=== PATIENT | female | born 1960 | race African-American/Black ===

== ENCOUNTER 2024-08-29 11:25 | Emergency (ER) | payer OTHER ==
[~2024-08-29] VITALS: Ht 157.5 cm; Wt 84.7 kg
--- NOTE | 2024-08-29 11:42 | ED.PDOC ---
HPI Comments HPI: Poor Historian. Exertional dyspnea for the last three days. Patient went to [facility] was found with a slightly elevated troponin and elevated BNP. No history of CHF. Past Medical History: Past Surgical History: 64y F who presents to the ED for chief complaint of shortness of breath - pt states she has been having shortness of breath for the past 3-4 days with light exertion - pt states she started to have palpitations yesterday with exacerbation of her symptoms today and came to [place] [facility] for further evaluation - pt states she labs and EKG done which was abnormal with associated labs showing congestive heart failure - pt states she was referred to local ED for further evaluation - pt states she has noticed bilateral lower extremity edema over the past few days - pt otherwise denies any other symptoms at this time past medical history: mitral valve prolapse, asthma, past surgical history: tonsillectomy, L breast lumpectomy, L knee surgery, allergies: amoxicillin, iodine, naproxen, metronidazole, penicillins, sulfa antibiotics medications: diltiazem, albuterol, meloxicam, social history: denies tobacco use, denies ETOH use, denies drug use REVIEW OF SYSTEMS: CONSTITUTIONAL: Denies acute: fever, diaphoresis, chills, generalized weakness. HEAD: Denies acute: headache, photophobia Eyes: Denies acute: Double vision, vision loss, eye pain, eye discharge. EARS: Denies acute: tinnitus, hearing loss, ear discharge, ear pain, THROAT: Denies acute: sore throat, swelling, difficulty swallowing , pain with swallowing, change in voice. NECK: Denies acute: neck pain, neck swelling, stiff neck. HEART: Denies acute : palpitations, LUNGS: Denies acute: wheezing, cough, hemoptysis ABDOMEN: Denies acute: abdominal pain, Nausea, Vomiting, diarrhea, melena , hematemesis, hematochezia SKIN: Denies acute: rash, redness, lesions, itchiness. EXTREMITIES: Denies acute: calf pain, numbness, tingling, weakness, denies pain in extremity. Denies acute: Low back pain. Neuro: Denies acute: focal neurological deficit, motor or sensory focal neurological deficit, tremors, seizure like activity, confusion, dizziness, change in mental status, loss of bowel or bladder function, cauda equina like symptoms. : Denies acute: dysuria, hematuria, flank pain, increase in urinary frequency. PSYCH: Denies acute: hallucination, suicidal ideation, homicidal ideation. FEMALE: Denies acute: abnormal vaginal bleeding, foul odor, unusual discharge. PHYSICAL EXAM: General: ----mild----acute distress, awake and alert. Head: normocephalic, atraumatic. Neck: supple, trachea is midline, no swelling. Throat: Normal phonation. Eyes:, no erythema, no purulent discharge, no proptosis, no icterus. Heart: regular rate, regular rhythm, no significant murmur appreciated. Lungs: no apparent respiratory distress, Able to speak in full sentences. No wheezing, no rhonchi, no crackles. No stridors Clear to auscultation bilaterally. Abdomen: non tender to palpation, non distended, soft, no guarding, no rebound, + bowel sounds. Neuro: Awake, Alert, oriented to name, self, situation, follows commands GCS=15. Speech is normal. Skin: no petechia, no purpura, no cyanosis, non-pale, not jaundice. Lower extremities: --no - Pitting edema no deformity, no focal swelling, no calf TTP. Makes eye contact. moves all four extremities. Face: no apparent facial droop. Ambulating in the ED independently. ED COURSE: DISCLAIMER: This medical document was created using an electronic medical record system with voice recognition software and computerized dictation system. Although this document has been carefully reviewed, there might still be some phonetic and typographical errors. Occasional wrong-word or "sound-alike" substitutions may have occurred due to the inherent limitations of voice recognition software. These areas are purely typographical due to imperfections of the software prog socorro and do not reflect any compromise in the patient's medical care. Please read the chart carefully and recognize, using context, where these substitutions have occurred. Time Seen by MD: 11:29 Primary Care Provider: Mayo Reviewed Notes: Nurses Notes Allergies: Coded Allergies: Amoxicillin (Unverified Allergy, Unknown, 12/02/14) Iodine (Unverified Allergy, Unknown, 12/02/14) Metronidazole (Unverified Allergy, Unknown, 12/02/14) Naproxen (Unverified Allergy, Unknown, 12/02/14) Peanut-containing Drug Products (Unverified Allergy, Unknown, 12/02/14) Penicillins (Unverified Allergy, Unknown, 12/02/14) Sulfa Antibiotics (Unverified Allergy, Unknown, 12/02/14) Uncoded Allergies: pecans (Allergy, Unknown, 08/29/24) walnuts (Allergy, Unknown, 12/02/14) Information Source: Patient Mode of Arrival: Ambulatory Brought in by: self Past Medical History PAST MEDICAL HISTORY: Denies Surgical History: Denies all surgeries 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 Was a procedure done?: No CP Differential Dx Differential Diagnosis: N/A Differential Diagnosis: Other (DDx include ACS, unstable angina, anxiety, PE, pneumothroax, neoplasm, cardiac ischemia, COPD, asthma, CHF, pleural effusion, tobacco abuse, pneumonia, hypoxia, hypercapnia, anemia., infection/sepsis., pulmonary edema. Asthma, Cardiac tamponade, infection.) X-Ray, Labs, Meds, VS Vital Signs Date Time Temp Pulse Resp B/P (MAP) Pulse Ox O2 Delivery O2 Flow Rate FiO2 08/29/24 20:00 98.1 71 20 108/52 (70) 98 98.1 08/29/24 18:00 94 18 106/62 (77) 94 08/29/24 16:00 64 08/29/24 15:18 72 20 101/46 (64) 96 08/29/24 14:06 124/61 08/29/24 12:04 73 08/29/24 12:04 73 17 96 Room Air* 0 21 08/29/24 12:04 98.2 73 17 120/65 (83) 96 98.2 08/29/24 12:04 95 Room Air* 0 21 08/29/24 12:04 18 95 Room Air* 0 08/29/24 11:49 63 08/29/24 11:34 Room Air* 0 21 08/29/24 11:34 98.2 107 22 134/84 (101) 97 98.2 Lab Test 6/28/25 15:14 08/29/24 13:15 08/29/24 13:14 08/29/24 12:26 Range/Units Troponin I High Sensitivity 38 *H 33 37 *H </=34 ng/L Urine Color Yellow Yellow Urine Clarity Cloudy H Clear Urine pH 5.5 5.0-9.0 Urine Specific [place] 1.017 1.001-1.035 Urine Protein Negative Negative Urine Ketones Trace Negative Urine Blood Negative Negative /uL Urine Nitrite Negative Negative Urine Bilirubin Negative Negative Urine Urobilinogen Normal Negative mg/dL Urine Leukocyte Esterase 3+ Negative /uL Urine RBC 9 0 - 4 /hpf Urine Microscopic WBC 114 H 0-5 /HPF Urine Squamous Epithelial Cells Few <5 /hpf Urine Bacteria Few H None Seen /hpf Urine Glucose Normal Normal mg/dL White Blood Count 6.6 4.4-10.8 10^3/uL Red Blood Count 4.15 4.0-5.20 10^6/uL Hemoglobin 13.3 12.2-16.2 g/dL Hematocrit 38.9 36.0-46.0 % Mean Corpuscular Volume 93.8 80.0-100.0 fL Mean Corpuscular Hemoglobin 32.1 H 28.0-32.0 pg Mean Corpuscular Hemoglobin Concent 34.2 32.0-36.0 g/dL Red Cell Distribution Width 13.7 11.8-14.3 % Platelet Count 198 140-450 10^3/uL Mean Platelet Volume 8.2 6.9-10.8 fL Neutrophils (%) (Auto) 66.0 37.0-80.0 % Lymphocytes (%) (Auto) 24.3 10.0-50.0 % Monocytes (%) (Auto) 6.9 0.0-12.0 % Eosinophils (%) (Auto) 2.3 0.0-7.0 % Basophils (%) (Auto) 0.5 0.0-2.0 % Neutrophils # (Auto) 4.4 1.6-8.6 10 ^3/uL Lymphocytes # (Auto) 1.6 0.4-5.4 10 ^3/uL Monocytes # (Auto) 0.5 0-1.3 10 ^3/uL Eosinophils # (Auto) 0.2 0-0.8 10 ^3/uL Basophils # (Auto) 0 0-0.2 10 ^3/uL Nucleated Red Blood Cells 0.0 % Prothrombin Time 11.2 9.3-11.8 sec Prothrombin Time INR 1.06 0.9-1.15 Activated Partial Thromboplast Time 29.4 24.5-34.5 SEC D-Dimer, Quantitative 2.24 H 0.0-0.49 mg/L FEU Sodium Level 147 H 136-145 mmol/L Potassium Level 3.6 3.5-5.1 mmol/L Chloride Level 111 H 98-107 mmol/L Carbon Dioxide Level 24 20-31 mmol/L Anion Gap 12 5-15 Blood Urea Nitrogen 11 9-23 mg/dL Creatinine 0.89 0.550-1.02 mg/dL Glomerular Filtration Rate Calc 73 >90 mL/min BUN/Creatinine Ratio 12.4 10.0-20.0 Serum Glucose 98 74-106 mg/dL Lactic Acid Level 1.3 0.4-2.0 mmol/L Calcium Level 9.3 8.7-10.4 mg/dL Total Bilirubin 0.9 0.2-1.0 mg/dL Aspartate Amino Transferase (AST) 28 <34 U/L Alanine Aminotransferase (ALT) 27 7-40 U/L Alkaline Phosphatase 95 46-116 U/L B-Type Natriuretic Peptide 492.10 0-100 pg/mL Total Protein 6.7 5.7-8.2 g/dL Albumin 4.2 3.2-4.8 g/dL [place] [id number] Ph: [phone] DIAGNOSTIC IMAGING Diagnostic Imaging Report : [id number] Signed PATIENT: ALBA GRAMAJO ACCT: [id number] UNIT: [id number] : 1960 LOC: ER ROOM / BED: / AGE / SEX: 64 / F ADM STATUS: REG ER SERVICE 1304 ORDERING PHYSICIAN: BOB ROCK DO PROCEDURE(s): BLDVT - BiLat Lower DVT REASON: sob ORDER NUMBER(s): [id number], ACCESSION NUMBER(s): [id number] US BiLat Lower DVT HISTORY: sob COMPARISON: None TECHNIQUE: Duplex Doppler evaluation of the deep venous system of the lower extremities from the common femoral veins, superficial femoral vein, deep femoral vein, popliteal vein, and calf veins, including color Doppler and spectral/pulsed waveform analysis, was performed. FINDINGS: Right: - Common femoral vein: Compressible - Deep femoral vein: Compressible - Femoral vein: Compressible - Popliteal vein: Compressible - Trifurcation and Posterior tibial vein: Waveforms present - Other: Popliteal fossa cyst measuring 1.8 x 0.8 x 4.7 cm. Left: - Common femoral vein: Compressible - Deep femoral vein: Compressible - Femoral vein: Compressible - Popliteal vein: Compressible - Trifurcation and Posterior tibial vein: Waveforms present - Other: Popliteal fossa cyst measuring 2.5 x 0.9 x 3.9 cm IMPRESSION: No right or left lower extremity deep venous thrombosis. Bilateral popliteal fossa cysts measuring 4.7 cm on the right and 3.9 cm on the left. ATED BY: RANDY AVITIA MD DICTATED DATE/TIME: 08/29/24 142 SIGNED BY: RANDY AVITIA MD SIGNED DATE/TIME: 08/29/24 142 CC: [place] [id number] Ph: [phone] DIAGNOSTIC IMAGING Diagnostic Imaging Report : [id number] Signed PATIENT: ALBA GRAMAJO ACCT: [id number] UNIT: [id number] : 1960 LOC: ER ROOM / BED: / AGE / SEX: 64 / F ADM STATUS: REG ER SERVICE 1134 ORDERING PHYSICIAN: BOB ROCK DO PROCEDURE(s): CXRP - CHEST PORTABLE REASON: chf ORDER NUMBER(s): [id number], ACCESSION NUMBER(s): [id number] CHEST RADIOGRAPH Indication: chf Technique: Single frontal view of the chest was obtained Comparison: None FINDINGS: Lines and Tubes: None Lungs and Pleura: Pulmonary vascular congestion/ edema. No focal consolidation. No effusion. No pneumothorax. Cardiomediastinal contours: Enlarged Bones: No acute osseous abnormality. IMPRESSION: Cardiomegaly with pulmonary vascular congestion /edema. ATED BY: RANDY AVITIA MD DICTATED DATE/TIME: 08/29/24 1248 SIGNED BY: RANDY AVITIA MD SIGNED DATE/TIME: 08/29/24 1248 CC: Time of 1ST Reevaluation: 14:54 (I discussed in length Lovenox anticoagulation with the patient. Patient denies any recent surgeries or brain aneurysms or coagulopathy or bleeding from anywhere. She has normal stool color. Patient is allergic to iodine. We do not have any V/Q scans available in our facility on weekends. Patient is agreeable with taking Lovenox for possible PE.The case was discussed with the [facility] admitting team (HPI, physical exam, labs and diagnostic tests that were available at the time of disposition, ED course, treatment plan) on the phone. They agreed to transfer the patient to their service by [facility] for further evaluation and treatment. Dr. jurado Authorization number is--[id number]) Reevaluation 1ST: Improved Patient Education/Counseling: Diagnosis, Treatment Family Education/Counseling: No Family Present Comments Patient presented with the above HPI.---dyspnea---workup was initiated. patient was found with the above mentioned diagnosis. the following medications were ordered: please refer to order lists of meds and tests obtained by myself Dr. Rock. Patient ED course and VS have been stabilized. Patient has been reassessed in the ED and remained in a stable condition. Pertinent incidental findings were discussed with the patient and/or family. Patient/family voices understanding and is agreeable with plan. Patient has been observed in the ED adequate length of time to insure improvement/stability. Escalation of care considered: Consideration of escalation to observation or admission Patient was transferred to [facility] per insurance requirement to the medicine team for further evaluation and treatment of their presentation. All the reports of any imaging studies that were ordered by myself were reviewed by myself. Departure 1 Departure Time of Disposition: 16:08 Impression: Primary Impression: Dyspnea Additional Impressions: Elevated troponin CHF (congestive heart failure) Ventricular bigeminy Left bundle branch block Disposition: 02 SHORT TERM HOSPITAL Admit to: Tele Condition: Guarded Discharged With: Self Critical Care Note Critical Care Time?: Yes (90 min-critical care time only) Heart Score Heart Score: Heart Score Response (Comments) Value History Moderate Suspicious [address]-Deviation 2 Age 45-64 1 Risk Factors No known risk factors 0 Troponin 1-2 x's Normal limit 1 Total 5 I personally scribed for BOB ROCK DO ([facility]) on 08/29/24 at 11:42. Electronically submitted by Stefany Sheppard ([facility]). I personally scribed for BOB ROCK DO ([facility]) on 08/29/24 at 12:35. Electronically submitted by Stefany Sheppard ([facility]). I personally scribed for BOB ROCK DO ([facility]) on 08/29/24 at 14:31. Electronically submitted by Stefany Sheppard ([facility]). BOB ROCK DO Aug 29, 2024 11:42
--- NOTE | 2024-08-29 11:50 | ECG ---
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
[2024-08-29] MEDS: IPRATROPIUM BROM 0.5 MG/2.5ML INH SOL NEB ONE (12:02)
[2024-08-29] MEDS: ALBUTEROL SULF 2.5 MG/0.5ML(0.5%) NEB SOLN NEB ONE (12:02)
[2024-08-29] MEDS: IPRATROPIUM BROM 0.5 MG/2.5ML INH SOL ONE (12:03)
[2024-08-29] MEDS: ALBUTEROL SULF 2.5 MG/0.5ML(0.5%) NEB SOLN ONE (12:03)
[2024-08-29 12:04] VITALS: PULSE 73; RESP 17; O2SAT 96
[2024-08-29 12:35] LABS: Basophils # (auto) 0 10 ^3/uL (0-0.2); Basophils % (auto) 0.5 % (0.0-2.0); Eosinophils # (auto) 0.2 10 ^3/uL (0-0.8); Eosinophils % (auto) 2.3 % (0.0-7.0); Hematocrit 38.9 % (36.0-46.0); Hemoglobin 13.3 g/dL (12.2-16.2); Lymphocytes # (auto) 1.6 10 ^3/uL (0.4-5.4); Lymphocytes % (auto) 24.3 % (10.0-50.0); Mean Corpuscular Hemoglobin 32.1 pg (28.0-32.0); Mean Corpuscular Hgb Conc. 34.2 g/dL (32.0-36.0); Mean Corpuscular Volume 93.8 fL (80.0-100.0); Monocytes # (auto) 0.5 10 ^3/uL (0-1.3); Monocytes % (auto) 6.9 % (0.0-12.0); Neutrophils # (auto) 4.4 10 ^3/uL (1.6-8.6); Platelet Count (auto) 198 10^3/uL (140-450); Red Blood Cells 4.15 10^6/uL (4.0-5.20); Red Cell Distribution Width 13.7 % (11.8-14.3); White Blood Cell 6.6 10^3/uL (4.4-10.8)
[2024-08-29 12:51] LABS: Alanine Aminotransferase 27 U/L (7-40); Albumin 4.2 g/dL (3.2-4.8); Alkaline Phosphatase 95 U/L (46-116); Anion Gap 12 (5-15); Aspartate Aminotransferase 28 U/L (<34); BUN/Creatinine Ratio 12.4 (10.0-20.0); Bilirubin, Total 0.9 mg/dL (0.2-1.0); Blood Urea Nitrogen 11 mg/dL (9-23); Calcium 9.3 mg/dL (8.7-10.4); Carbon Dioxide 24 mmol/L (20-31); Chloride 111 mmol/L (98-107); Glucose 98 mg/dL (74-106); Potassium 3.6 mmol/L (3.5-5.1); Sodium 147 mmol/L (136-145); Total Protein 6.7 g/dL (5.7-8.2)
--- NOTE | 2024-08-29 12:51 | DVH ---
CHEST RADIOGRAPH Indication: chf Technique: Single frontal view of the chest was obtained Comparison: None FINDINGS: Lines and Tubes: None Lungs and Pleura: Pulmonary vascular congestion/ edema. No focal consolidation. No effusion. No pneumothorax. Cardiomediastinal contours: Enlarged Bones: No acute osseous abnormality. IMPRESSION: Cardiomegaly with pulmonary vascular congestion /edema.
[2024-08-29 13:55] LABS: Urine Bacteria FEW /hpf (None Seen); Urine Blood Negative /uL (Negative); Urine Clarity Cloudy (Clear); Urine Color Yellow (Yellow); Urine Protein, UAD Negative (Negative); Urine Specific Gravity 1.017 (1.001-1.035); Urine Squamous Epithelial Cell FEW /hpf (<5); Urine Urobilinogen Normal (Negative); Urine WBC 114 /HPF (0-5); Urine pH 5.5 (5.0-9.0)
[2024-08-29 14:00] LABS: INR 1.06 (0.9-1.15); Partial Thromboplastin Time 29.4 SEC (24.5-34.5); Prothrombin Time 11.2 sec (9.3-11.8)
[2024-08-29] MEDS: methylPREDNISolone SOD SUCC 125 MG/2 ML VL IV ONE (14:05)
[2024-08-29] MEDS: ASPirin-EC 325mg tab PO ONE (14:06)
[2024-08-29] MEDS: FUROSEMIDE 40 MG/4 ML VIAL IV ONE (14:06)
--- NOTE | 2024-08-29 14:23 | DVH ---
US BiLat Lower DVT HISTORY: sob COMPARISON: None TECHNIQUE: Duplex Doppler evaluation of the deep venous system of the lower extremities from the comm on femoral veins, superficial femoral vein, deep femoral vein, popliteal vein, and calf veins, inclu ding color Doppler and spectral/pulsed waveform analysis, was performed. FINDINGS: Right: - Common femoral vein: Compressible - Deep femoral vein: Compressible - Femoral vein: Compressible - Popliteal vein: Compressible - Trifurcation and Posterior tibial vein: Waveforms present - Other: Popliteal fossa cyst measuring 1.8 x 0.8 x 4.7 cm. Left: - Common femoral vein: Compressible - Deep femoral vein: Compressible - Femoral vein: Compressible - Popliteal vein: Compressible - Trifurcation and Posterior tibial vein: Waveforms present - Other: Popliteal fossa cyst measuring 2.5 x 0.9 x 3.9 cm IMPRESSION: No right or left lower extremity deep venous thrombosis. Bilateral popliteal fossa cysts measuring 4.7 cm on the right and 3.9 cm on the left.
[2024-08-29] MEDS: levoFLOXacin 500 MG TAB PO ONE (15:11)
[2024-08-29] MEDS: ENOXAPARIN SOD 80 MG/0.8ML SYRINGE SC ONE (15:12)
[2024-08-29] MEDS ORDERED: SODIUM CHLORIDE 0.9% 200 ML IV ONE (17:20)
[2024-08-29 20:00] VITALS: BP 108/52; PULSE 71; RESP 20; TEMP 98.1; O2SAT 98
--- NOTE | 2024-09-03 14:49 | ECG ---
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
== END 2024-08-29 20:32 | disposition short-term general hospital (02) ==
LOC: ER 11:25
DX: I44.7 Left bundle-branch block, unspecified (principal); I50.9 Heart failure, unspecified; R06.00 Dyspnea, unspecified; R79.89 Other specified abnormal findings of blood chemistry; R00.8 Other abnormalities of heart beat; Z90.89 Acquired absence of other organs; Z88.6 Allergy status to analgesic agent; Z88.2 Allergy status to sulfonamides; Z88.1 Allergy status to other antibiotic agents; Z88.0 Allergy status to penicillin; Z79.899 Other long term (current) drug therapy
CPT/HCPCS: 36415; 71045; 80053; 81001; 83605; 83880; 84484; 85025; 85379; 85610; 85730; 93005; 93970; 94640; 96372; 96374; 96375; 99291; 99292; J1650; J1938; J2919